=== PATIENT | male | born 2000 | race Caucasian/White ===

== ENCOUNTER 2023-09-10 12:04 | Emergency (ER) | payer MEDICAID, OTHER ==
[~2023-09-10] VITALS: Ht 167.6 cm; Wt 59.0 kg
[2023-09-10] MEDS ORDERED: ACET1TAB23 PO (13:52)
[2023-09-10 14:56] VITALS: BP 118/80; TEMP 98; O2SAT 99
== END 2023-09-10 14:57 | disposition home or self-care (01) ==
LOC: ER 12:04
DX: S93.492A Sprain of other ligament of left ankle, initial encounter (principal); F17.200 Nicotine dependence, unspecified, uncomplicated; Z79.899 Other long term (current) drug therapy; X50.1XXA Overexertion from prolonged static or awkward postures, initial encounter; Y93.51 Activity, roller skating (inline) and skateboarding; Y92.89 Other specified places as the place of occurrence of the external cause; Y99.8 Other external cause status
CPT/HCPCS: 73610; A4606; A4663